=== PATIENT | female | born 1950 | race Caucasian/White ===

== ENCOUNTER → 2022-12-19 | Outpatient (CLI) | payer MEDICARE ==
--- NOTE | 2022-12-19 09:59 | MM ---
Reason for Exam: Clinical finding. Baseline mammogram. Indicated Problems: Bloody discharge of the left side for 3 Year(s). Patient History: Menarche at age 15. First Full-Term at age 22. Left ovary removed at age 66. Right ovary removed at age 66. Hysterectomy at age 66. Postmenopausal. Niece had breast cancer under age 50. Risk Values: Sirena 5 year model risk: 1.4%. NCI Lifetime model risk: 4.0%. Prior Study Comparison: Patient's first Mammogram. Tissue Density: There are scattered fibroglandular densities. Findings: Analyzed By CAD. No distortion or suspicious group of microcalcifications in either breast. Overall Assessment: Negative, BI-RAD 1 Management: Screening Mammogram of both breasts in 1 year. Advise surgical consultation due to left nipple discharge. Results were given to the patient verbally at the time of exam. Patient should continue monthly self-breast exams. A clinical breast exam by your physician is recommended on an annual basis. This exam should not preclude additional follow-up of suspicious palpable abnormalities. Note on Sirena scores and lifetime risk: 1. A Sirena score greater than 3% is considered moderate risk. If this is the case, consider specialist referral to assess eligibility for a risk reducing agent. 2. If overall lifetime risk for the development of breast cancer is 20% or higher, the patient may qualify for future screening with alternating mammogram and breast MRI. Electronically signed and approved by: Micha Robison M.D.
== END | disposition home or self-care (01) ==
LOC: RADMAMWWP 08:56
PROVIDERS: ATTEND Internal Medicine
DX: R92.8 Other abnormal and inconclusive findings on diagnostic imaging of breast (principal); N64.52 Nipple discharge; Z78.0 Asymptomatic menopausal state
CPT/HCPCS: 77066; G0279; 77062

== ENCOUNTER → 2022-12-31 | Outpatient (CLI) | payer MEDICARE ==
[2022-12-31 10:21] VITALS: BP 155/89; PULSE 76; RESP 18; TEMP 97.6
--- NOTE | 2022-12-31 10:55 | P.GSHP ---
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 Brandt regarding a biopsy-proven left breast punch biopsy of the nipple areolar region positive for invasive ductal carcinoma. The patient underwent a bilateral mammogram and 10012 this was benign BIRADS 1. The patient states she had had some protrusion at the left nipple for approximately 3 years, she herself. This area off and it did not heal well. The patient has not noted any other lumps masses or nodules of concern in either breast. She has no lesions of concern on her right nipple. She does not complain of any nipple discharge. She's not had any recent trauma or infection in her breast. She's never had any surgery of her breasts. Patient had uterine cancer 6 years ago treated with a hysterectomy and radiation. She did not have any chemotherapy or hormone therapy. Caffeine: 1 cup/day nicotine: none chocolate: occasional BCP: 6 months in the remote past Family History: Patient: Uterine cancer sister: uterine cancer Niece: Breast cancer Hormonal history: Menarche: 15 , breast fed: no age at first : 22 menopause: not sure when stopped, she started having dysfunctional uterine bleeding shortly after she stopped her periods and didn't realize that it was most likely a uterine malignancy hormones: none Surgical history: 2 C-sections Total abdominal hysterectomy Stomach surgery question what was done Medical history: HTN GERD Social History: Nicotine: Negative Alcohol: Negative Drugs: Negative - Constitutional Constitutional: Denies chills, Denies fever - EENT Eyes: denies blurred vision, denies pain Ears: deny: decreased hearing, tinnitus Ears, nose, mouth and throat: Denies headache, Denies sore throat - Breasts Breasts: bilateral: as per HPI - Cardiovascular Cardiovascular: Denies chest pain, Denies shortness of breath - Respiratory Respiratory: Denies cough, Denies 7 - Gastrointestinal Gastrointestinal: Reports as per HPI - Genitourinary (Female) Genitourinary: Denies dysuria, Denies hematuria - Menstruation Menstruation: Reports as per HPI - Musculoskeletal Musculoskeletal: Reports myalgias - Integumentary Integumentary: Denies pruritus, Denies rash - Neurological Neurological: Denies numbness, Denies weakness - Psychiatric Psychiatric: Denies anxiety, Denies depression - Endocrine Endocrine: Denies fatigue, Denies weight change - Hematologic/Lymphatic Comment: none - Allergic/Immunologic Allergic/Immunologic: Reports seasonal allergies Past Medical History History of Any Multi-Drug Resistant Organisms: None Reported Smoking Status: Never smoker Medications and Allergies Home Medications Medication Instructions Recorded Confirmed Type Metoprolol Tartrate [Lopressor] 50 mg PO DAILY 12/31/22 12/31/22 History Allergies Allergy/AdvReac Type Severity Reaction Status Date / Time No Known Allergies Allergy Unverified 12/31/22 10:16 Surgical - Exam Vital Signs Temp Pulse Resp BP Pulse Ox 97.6 F 76 18 155/89 100 12/31/22 10:17 12/31/22 10:17 12/31/22 10:17 12/31/22 10:17 12/31/22 10:17 - General no distress - Eyes normal ocular movement - ENT no hearing loss - Neck trachea midline - Respiratory normal respiratory effort, clear to auscultation - Cardiovascular Rhythm: regular Heart Sounds: normal: S1, S2 - Abdomen Abdomen: soft, non tender, no guarding, no rigid, no rebound - Integumentary normal turgor - Neurologic no disoriented, no combative - Musculoskeletal normal gait - Psychiatric oriented to time, oriented to person, oriented to place, speech is normal, memory intact Breast Exam: BRA; large sports bra inspection: Bilateral grade 3 ptosis, the left nipple is firm and erythematous enlarged and this is the area of the biopsy site Palpation: Right breast: Positional exam fibrocystic changes no dominant masses or nodules of concern Right axilla: No adenopathy of concern Left breast: Multi-positional exam fibrocystic changes no discrete dominant masses or nodules within the breast, the nipple itself is firm and erythematous and appears to have tumor extruding from the nipple itself Left axilla: No adenopathy of concern Results Mammogram reviewed this was a BIRADS 1 Pathology reviewed invasive ductal carcinoma estrogen receptor positive progesterone receptor positive and HER-2 +1 Grade 2 Assessment and Plan Assessment: Impression: Invasive ductal carcinoma left nipple complex Plan: Presentation of case at tumor board Probable central lumpectomy with sentinel node biopsy Consider neoadjuvant chemotherapy Appointment with medical oncology A primary with radiation oncology CC: Dr. Brandt
== END ==
LOC: WWCWWP 09:59
PROVIDERS: ATTEND Surgery
DX: C50.912 Malignant neoplasm of unspecified site of left female breast (principal); Z85.3 Personal history of malignant neoplasm of breast; I10 Essential (primary) hypertension; K21.9 Gastro-esophageal reflux disease without esophagitis; Z79.899 Other long term (current) drug therapy

== ENCOUNTER → 2023-01-24 | Outpatient (CLI) | payer MEDICARE ==
--- NOTE | 2023-01-26 12:49 | BMR ---
EXAMINATION TYPE: MR breast BILAT wo/w con DATE OF EXAM: 01/24/2023 COMPARISON: Bilateral 3-D diagnostic mammogram December 19, 2022 BI-RADS 1. HISTORY: History of benign biopsy of left breast. Left-sided nipple bloody discharge for 3 years. Inv asive mammary carcinoma left nipple on punch biopsy TECHNIQUE: A series of fat and water weighted images in the long and short axis views of both breasts are obtained in conjunction with dynamic contrast MRI with subtraction technique. The patient was i njected with 11.5 mL intravenous Gadavist gadolinium contrast. Three-dimensional and additional pos tprocessing imaging is created on independent workstation and reviewed during official interpretation of this study. FINDINGS: Scattered fibroglandular tissue bilaterally is redemonstrated. There are benign-appearing b ilateral axillary lymph nodes noted. No significant cystic change or focal fluid collections are iden tified bilaterally. Dynamic postcontrast imaging shows minimal background enhancement bilaterally. With regards to the right breast. There is no abnormal skin thickening seen. No pathologic enhancemen t or enhancing masses are identified. The chest wall appears intact. Right nipple pointing inferiorly on sagittal image 34. With regards to the left breast. There is no abnormal skin thickening seen. Left nipple pointing infe riorly on sagittal image 43. There is some heterogeneous enhancement with areas of uptake and washout . No additional areas of pathologic enhancement throughout the entire left breast are identified. The chest wall appears intact. IMPRESSION: Some heterogeneous enhancement with washout through the left nipple consistent with recen t biopsy-proven carcinoma. No multicentric involvement in the left breast. No MRI evidence for invasi ve malignancy in the right breast. No suspicious adenopathy BI-RADS 6 biopsy-proven cancer left breast BI-RADS 2 benign findings right breast Recommendation: Appropriate surgical and oncologic management for newly diagnosed left breast tom larsen
== END | disposition home or self-care (01) ==
LOC: RADMRIMAIN 13:03
PROVIDERS: ATTEND Internal Medicine
DX: C50.012 Malignant neoplasm of nipple and areola, left female breast (principal)
CPT/HCPCS: C8908; A9585; 77049

== ENCOUNTER → 2023-02-20 | Outpatient (CLI) | payer MEDICARE ==
[2023-02-20 12:59] VITALS: BP 153/80; PULSE 89; RESP 17; TEMP 98.3
--- NOTE | 2023-02-20 13:31 | P.PN ---
Subjective Progress Note Date: 02/20/23 Principal diagnosis: left nipple cancer History of Present Illness H&P Date: 02-20-23 Chief Complaint: left breast invasive ductal carcinoma on punch biopsy Danitza is a 72-year-old white female seen in consultation for Dr. Brandt regarding a biopsy-proven left breast punch biopsy of the nipple areolar region positive for invasive ductal carcinoma. The [place] [address] this was benign BIRADS 1. The patient states she had had some protrusion at the left nipple for approximately 3 years, a sore occured which did not heal well. The patient has not noted any other lumps masses or nodules of concern in either breast. She has no lesions of concern on her right nipple. She does not complain of any nipple discharge. She's not had any recent trauma or infection in her breast. She's never had any surgery of her breasts. Patient had uterine cancer 6 years ago treated with a hysterectomy and radiation. She did not have any chemotherapy or hormone therapy. MRI: 01-23-23 no pathologic enhancement of the tissue in either breast [facility] oncology note reviewed: 01-28-23 radiation oncology note reviewed 02-12-23 oncotype: 13 < 1% benefit patient decided to defer genetic testing Caffeine: 1 cup/day nicotine: none chocolate: occasional BCP: 6 months in the remote past Family History: Patient: Uterine cancer sister: uterine cancer Niece: Breast cancer Hormonal history: Menarche: 15 , breast fed: no age at first : 22 menopause: not sure when stopped, she started having dysfunctional uterine bleeding shortly after she stopped her periods and didn't realize that it was most likely a uterine malignancy hormones: none Surgical history: 2 C-sections Total abdominal hysterectomy Stomach surgery question what was done Medical history: HTN GERD Social History: Nicotine: Negative Alcohol: Negative Drugs: Negative - Constitutional Constitutional: Denies chills, Denies fever - EENT Eyes: denies blurred vision, denies pain Ears: deny: decreased hearing, tinnitus Ears, nose, mouth and throat: Denies headache, Denies sore throat - Breasts Breasts: bilateral: as per HPI - Cardiovascular Cardiovascular: Denies chest pain, Denies shortness of breath - Respiratory Respiratory: Denies cough - Gastrointestinal Gastrointestinal: Reports as per HPI - Genitourinary (Female) Genitourinary: Denies dysuria, Denies hematuria - Menstruation Menstruation: Reports as per HPI - Musculoskeletal Musculoskeletal: Reports myalgias - Integumentary Integumentary: Denies pruritus, Denies rash - Neurological Neurological: Denies numbness, Denies weakness - Psychiatric Psychiatric: Denies anxiety, Denies depression - Endocrine Endocrine: Denies fatigue, Denies weight change - Hematologic/Lymphatic Comment: none - Allergic/Immunologic Allergic/Immunologic: Reports seasonal allergies Past Medical History History of Any Multi-Drug Resistant Organisms: None Reported Smoking Status: Never smoker Medications and Allergies Home Medications Medication Instructions Recorded Confirmed Type Metoprolol Tartrate [Lopressor] 50 mg PO DAILY 12/31/22 12/31/22 History Allergies Allergy/AdvReac Type Severity Reaction Status Date / Time No Known Allergies Allergy Unverified 12/31/22 10:16 Objective - Vital Signs Vital signs: Vital Signs Temp 98.3 F 02/20/23 12:55 Pulse 89 02/20/23 12:55 Resp 17 02/20/23 12:55 BP 153/80 02/20/23 12:55 Pulse Ox 97 02/20/23 12:55 FiO2 Intake & Output 02/19/23 02/20/23 02/20/23 18:59 06:59 18:59 Weight 109.316 kg - Constitutional General appearance: Present: cooperative - EENT Eyes: Present: EOMI ENT: Present: hearing grossly normal - Neck Neck: Present: normal ROM - Respiratory Respiratory: bilateral: CTA - Cardiovascular Heart sounds: normal: S1, S2 - Gastrointestinal General gastrointestinal: Present: soft - Integumentary Integumentary: Present: normal turgor - Musculoskeletal Musculoskeletal: Present: gait normal - Psychiatric Psychiatric: Present: A&O x's 3, appropriate affect, intact judgment & insight - Additional findings Additional findings: Breast Exam: BRA; large sports bra inspection: Bilateral grade 3 ptosis, the left nipple is firm and erythematous enlarged and this is the area of the biopsy site Palpation: Right breast: Positional exam fibrocystic changes no dominant masses or nodules of concern Right axilla: No adenopathy of concern Left breast: Multi-positional exam fibrocystic changes no discrete dominant masses or nodules within the breast, the nipple itself is firm and erythematous and appears to have tumor extruding from the nipple itself Left axilla: No adenopathy of concern Assessment and Plan Assessment: Impression: Invasive ductal carcinoma left nipple complex Plan: Presentation of case at tumor board: 01-13-23 Probable central lumpectomy left breast with left sentinel node injection and left sentinel node biopsy possible onco-plastic tissue transfer and possible left axillary node dissection Consider neoadjuvant chemotherapy Appointment with medical oncology A primary with radiation oncology We have discussed treatment options. Surgical: We have talked about lumpectomy versus mastectomy. We have talked about sentinel node biopsy and axillary node dissection. At this point the patient would for prefer to have a lumpectomy. We have discussed the tissues seemed Wisely guidelines and the patient would prefer to have a sentinel node biopsy. Radiation oncology: We have talked about the need for radiation oncology if the patient has a lumpectomy Medical oncology: We have talked about chemotherapy, hormone therapy, and immunotherapy. Of importance is the fact that the lesion appears to be extending out through the nipple complex. I'm uncertain as to whether this truly represents invasion of the skin or an extrusion through the ductal area of the nipple. CC: Dr. Brandt
== END ==
LOC: WWCWWP 11:54
PROVIDERS: ATTEND Surgery
DX: C50.912 Malignant neoplasm of unspecified site of left female breast (principal); I10 Essential (primary) hypertension; K21.9 Gastro-esophageal reflux disease without esophagitis; Z90.710 Acquired absence of both cervix and uterus; Z79.899 Other long term (current) drug therapy

== ENCOUNTER 2023-03-05 07:40 | Day surgery (SDC) | payer MEDICARE ==
[2023-02-27 15:52] VITALS: BMI 42.7
[~2023-03-05 07:40] MED LIST: ALPRAZolam 0.25 MG TAB PO PRN; DEXAMETHASONE SOD PHOSPHATE 4 MG/ML 1 ML VIAL IV ONE; HEPARIN SODIUM,PORCINE/PF 5,000 UNIT/0.5 ML SYRINGE SQ PRN; LACTATED RINGERS 1,000 ML IV SCH; ONDANSETRON 4 MG/2 ML VIAL IVP ONE; Pre Op ABX Message 1 EACH MISC MISCELLANE ONE; fentaNYL (PF) 50 MCG/ML 2 ML AMP IV PRN
[2023-03-05 08:34] VITALS: TEMP 96.8
--- NOTE | 2023-03-05 09:37 | NM ---
EXAMINATION TYPE: NM sentinel node injection DATE OF EXAM: 03/05/2023 COMPARISON: 12/19/2022 CLINICAL INDICATION: Female, 73 years old with history of C50.012 MALIGNANT NEOPLASM OF NIPPLE AND AR EOLA, LEFT BREAST; TECHNIQUE AND FINDINGS: The procedure of sentinel lymph node injection was explained to the patient. The benefits, alternatives, and risks were discussed. An informed consent was then obtained. Overlying skin is cleaned with sterile alcohol. Following this, 496 uCi Tc99m Tilmanocept was inject ed in the upper outer aspect of the left nipple intradermally. The patient tolerated the procedure well without any immediate complication. The patient was kept in the radiology department for short stay after the procedure and then taken to surgery for surgical p rocedure what is presumed intraoperative gamma probe will be used for sentinel lymph node detection. IMPRESSION: Left breast radiotracer injection for sentinel node localization as above.
--- NOTE | 2023-03-05 10:05 | P.NAPBC ---
NAPBC Queries - NAPBC Queries Was patient's case review presented at [facility] tumor board? If no, comment.: Yes Was patient's pathology reviewed at [facility]? If no, comment.: Yes Was breast conservation surgery offered? If no, comment.: Yes Was sentinel node biopsy offered? If no, comment.: Yes Was diagnosis confirmed by percutaneous core biopsy? If no, comment.: Yes Is patient mastectomy patient?: No Was a preop referral to reconstructive surgeon offered?: No Clinical Stage: stage I invasive ductal cancer
[2023-03-05] MEDS ORDERED: MIDAZOLAM 2 MG/2 ML VIAL ONE (10:48)
[2023-03-05] MEDS ORDERED: SUCCINYLCHOLINE CHLORIDE 200 MG/10 ML VIAL IV ONE (10:48)
[2023-03-05] MEDS ORDERED: ePHEDrine 50 MG/ML 1 ML VIAL ONE (10:48)
[2023-03-05] MEDS ORDERED: LIDOCAINE 4% LTA KIT (4 ML) TOPICAL ONE (10:48)
[2023-03-05] MEDS ORDERED: PROPOFOL 10 MG/ML 20 ML VIAL IV ONE (10:48)
[2023-03-05] MEDS ORDERED: fentaNYL (PF) 50 MCG/ML 2 ML AMP ONE (10:48)
[2023-03-05] MEDS ORDERED: LIDOCAINE 2% INJ 20 MG/ML (2 ML VIAL) ONE (10:48)
[2023-03-05] MEDS ORDERED: SODIUM CHLORIDE 0.9% 50 ML with ceFAZolin 2,000 MG IV ONE ×2 (11:00)
[2023-03-05] MEDS ORDERED: ceFAZolin 1,000 MG VIAL ONE (11:00)
[2023-03-05] MEDS ORDERED: SODIUM CHLORIDE 0.9% 100 ML BAG ONE (11:00)
--- NOTE | 2023-03-05 12:16 | P.OP ---
Date of Procedure: 03/05/23 Preoperative Diagnosis: Left breast invasive ductal carcinoma Postoperative Diagnosis: Same Procedure(s) Performed: Left breast central lumpectomy, sentinel node biopsy, onco-plastic tissue transfer 36 cm Anesthesia: CHARANJIT Surgeon: Mamta Martinez Estimated Blood Loss (ml): 10 IV fluids (ml): 400 Pathology: other (Left axilla, breast tissue) Condition: stable Disposition: same day Indications for Procedure: Left breast biopsy-proven invasive ductal carcinoma Operative Findings: Fibrofatty breast tissue Description of Procedure: The patient is a 73-year-old white female diagnosed with a left breast invasive ductal carcinoma at the nipple areolar complex. She was injected in the periareolar area with radioactive tracer in the preoperative area. The patient was then brought to the operative suite. In the operative suite and following induction of anesthesia. The neoprobe was used to establish that there was radioactivity in the axilla. Following this the left breast and axilla were prepped and draped in a sterile fashion. An incision was made in the axilla over the area of greatest radioactivity. Dissection was performed down to a radioactive lymph node. Using the Harmonic scalpel. The area of tissue was excised. The 10 second count on the node was 44,702. The 10 second background count was 18. After assured that hemostasis was attained the wound was well irrigated. The deep tissues were closed using 3-0 Vicryl suture. The skin was closed using 4-0 Monocryl. Following this the area of the breast was approached. The nipple areolar complex had been outlined in the preoperative area. Wide excision was performed around this in elliptical fashion. Anterior skin of the nipple areolar complex as well as the nipple and areolar were removed. Dissection was carried inferiorly to the pectoralis major muscle. The specimen was removed. Following this the wound was well irrigated. Superior pillar 5 x 2 cm for 10 cm2 was formed, and inferior pillar 7 x 2 cm for 14 cm2 was formed. The cavity itself was 6 x 2 cm for 12 cm2.. Tissue transfer was 36 cm. The deep tissues were irrigated. Titanium clips were placed. Surgicel in powder form was placed. The deep tissue Pillars were brought together using 3-0 Vicryl suture. This was followed by closure of the subcutaneous tissue with 3-0 Vicryl suture. The skin was closed using a 4-0 Monocryl. The patient tolerated the procedure in stable condition. The specimen was painted for orientation. Anterior black Posterior green Superior viloet Inferior:blue Medial: Yellow Lateral: orange. Additionally at the superior aspect on the anterior surface of the nipple areolar complex a nylon suture was placed. The skin of the nipple areolar lesion was excised. Inferior All instrument and sponge counts were correct at the end of the case.
--- NOTE | 2023-03-05 12:18 | P.DS ---
Providers Attending physician: Mamta Martinez Primary care physician: Les Brandt Plan - Discharge Summary Discharge Rx Participant: No New Discharge Prescriptions: No Action Metoprolol Tartrate [Lopressor] 50 mg PO DAILY Discharge Medication List Metoprolol Tartrate [Lopressor] 50 mg PO DAILY 12/31/22 [History] Follow up Appointment(s)/Referral(s): Mamta Martinez MD [STAFF PHYSICIAN] - 03/13/23 8:40 am Activity/Diet/Wound Care/Special Instructions: Do not drive for 24 hours from discharge, or if taking narcotic pain medicine Wear bra at all times May shower after 48 hours Discharge Disposition: HOME SELF-CARE
[2023-03-05 12:36] VITALS: RESP 16
[2023-03-05 13:12] VITALS: BP 120/75; PULSE 62
== END 2023-03-05 13:36 | disposition home or self-care (01) ==
LOC: OR 07:40
PROVIDERS: ATTEND Surgery
DX: C50.912 Malignant neoplasm of unspecified site of left female breast (principal); C77.3 Secondary and unspecified malignant neoplasm of axilla and upper limb lymph nodes; I10 Essential (primary) hypertension; Z85.42 Personal history of malignant neoplasm of other parts of uterus; Z79.899 Other long term (current) drug therapy
CPT/HCPCS: 19301; 38525; 14301; 93005; 88342; 88307; 88341; 38792; A9520; J2250; J0330; J1100; J2405; J0690; J3010; J2704; J1644; J2001

== ENCOUNTER → 2023-07-10 | Outpatient (CLI) | payer MEDICARE ==
--- NOTE | 2023-07-10 09:33 | P.PN ---
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 Brandt regarding a biopsy-proven left breast punch biopsy of the nipple areolar region positive for invasive ductal carcinoma. The [place] [id number] this was benign BIRADS 1. The patient states she had had some protrusion at the left nipple for approximately 3 years, a sore occured which did not heal well. The patient has not noted any other lumps masses or nodules of concern in either breast. She has no lesions of concern on her right nipple. She does not complain of any nipple discharge. She's not had any recent trauma or infection in her breast. She's never had any surgery of her breasts. Patient had uterine cancer 6 years ago treated with a hysterectomy and radiation. She did not have any chemotherapy or hormone therapy. The patient on 03-05-23 underwent a central lumpectomy and SNB. 1.5 Cm invasive cancer all margins (-). two nodes one with isolated tumor cells. oncotype 13 completed radiation therapy anastrazole recommended by medical oncology, however the patient has decided not to take this. She is not complaining of any new lumps masses or nodules of concern in either breast. MRI: 01-23-23 no pathologic enhancement of the tissue in either breast medical oncology note reviewed: 05-14-23 radiation oncology oncotype: 13 < 1% benefit patient decided to defer genetic testing Caffeine: 1 cup/day nicotine: none chocolate: occasional BCP: 6 months in the remote past Family History: Patient: Uterine cancer sister: uterine cancer Niece: Breast cancer Hormonal history: Menarche: 15 , breast fed: no age at first : 22 menopause: not sure when stopped, she started having dysfunctional uterine bleeding shortly after she stopped her periods and didn't realize that it was most likely a uterine malignancy hormones: none Surgical history: 2 C-sections Total abdominal hysterectomy Stomach surgery question what was done left breast central lumpectomy and SNB Medical history: HTN GERD Social History: Nicotine: Negative Alcohol: Negative Drugs: Negative - Constitutional Constitutional: Denies chills, Denies fever - EENT Eyes: denies blurred vision, denies pain Ears: deny: decreased hearing, tinnitus Ears, nose, mouth and throat: Denies headache, Denies sore throat - Breasts Breasts: bilateral: as per HPI - Cardiovascular Cardiovascular: Denies chest pain, Denies shortness of breath - Respiratory Respiratory: Denies cough - Gastrointestinal Gastrointestinal: Reports as per HPI - Genitourinary (Female) Genitourinary: Denies dysuria, Denies hematuria - Menstruation Menstruation: Reports as per HPI - Musculoskeletal Musculoskeletal: Reports myalgias - Integumentary Integumentary: Denies pruritus, Denies rash - Neurological Neurological: Denies numbness, Denies weakness - Psychiatric Psychiatric: Denies anxiety, Denies depression - Endocrine Endocrine: Denies fatigue, Denies weight change - Hematologic/Lymphatic Comment: none - Allergic/Immunologic Allergic/Immunologic: Reports seasonal allergies Past Medical History History of Any Multi-Drug Resistant Organisms: None Reported Smoking Status: Never smoker Medications and Allergies Home Medications Medication Instructions Recorded Confirmed Type Metoprolol Tartrate [Lopressor] 50 mg PO DAILY 12/31/22 12/31/22 History Allergies Allergy/AdvReac Type Severity Reaction Status Date / Time No Known Allergies Allergy Unverified 12/31/22 10:16 Objective - Vital Signs Vital signs: Intake & Output 07/09/23 07/10/23 07/10/23 18:59 06:59 18:59 Weight 110.223 kg - Constitutional General appearance: Present: cooperative - EENT Eyes: Present: EOMI ENT: Present: hearing grossly normal - Neck Neck: Present: normal ROM - Respiratory Respiratory: bilateral: CTA - Cardiovascular Rhythm: regular Heart sounds: normal: S1, S2 - Gastrointestinal General gastrointestinal: Present: soft - Integumentary Integumentary: Present: normal turgor - Musculoskeletal Musculoskeletal: Present: gait normal - Psychiatric Psychiatric: Present: A&O x's 3, appropriate affect, intact judgment & insight - Additional findings Additional findings: Breast Exam: BRA; large sports bra inspection: Bilateral grade 3 ptosis, the left nipple is firm and erythematous enlarged and this is the area of the biopsy site Palpation: Right breast: Positional exam fibrocystic changes no dominant masses or nodules of concern Right axilla: No adenopathy of concern Left breast: Multi-positional exam fibrocystic changes no discrete dominant masses or nodules within the breast, status post central lumpectomy and radiation therapy Left axilla: No adenopathy of concern Assessment and Plan Assessment: Impression: Invasive ductal carcinoma left nipple complex/ status post treatment patient has decided against hormones therapy Plan: bilateral mammogram November 2023 with appointment at that time follow with radiation oncology follow with medial oncology CC: Dr. Brandt
[2023-07-10 09:35] VITALS: BP 153/80; PULSE 65; RESP 17; TEMP 97.8
== END ==
LOC: WWCWWP 08:44
PROVIDERS: ATTEND Surgery
DX: D05.12 Intraductal carcinoma in situ of left breast (principal); I10 Essential (primary) hypertension; K21.9 Gastro-esophageal reflux disease without esophagitis; Z79.899 Other long term (current) drug therapy

== ENCOUNTER 2024-02-17 07:39 | Day surgery (SDC) | payer MEDICARE ==
[2024-02-17 08:44] VITALS: TEMP 98.1
[2024-02-17 09:37] VITALS: RESP 16
[2024-02-17 10:13] VITALS: BP 136/84; PULSE 61
--- NOTE | 2024-02-17 11:57 | US ---
EXAMINATION TYPE: US FNA thyroid first lesion DATE OF EXAM: 02/17/2024 9:59 AM CLINICAL INDICATION:Female, 74 years old with history of E04.1 SINGLE THYROID NODULE; , thyroid nodul e. COMPARISON: None ATTENDING: Dr. Les Orlando PROCEDURE: Informed consent was obtained. The risks and benefits of the procedure were discussed with the patien t. The site was marked. Timeout procedure was performed Ultrasound imaging of the thyroid demonstrates right thyroid nodule The patient was prepped, draped in the usual sterile fashion, and locally anesthetized with 1% lidoca ine. Five fine needle aspiration were then performed with a 25 gauge needle. Samples were sent to [facility] pathology department for further analysis. Patient tolerated the procedure without incident and wa s sent home in stable condition. IMPRESSION: Successful ultrasound guided fine needle aspiration.
== END 2024-02-17 10:10 | disposition home or self-care (01) ==
LOC: RADPROMAIN 07:39
PROVIDERS: ATTEND Family Medicine
DX: E04.1 Nontoxic single thyroid nodule (principal)
CPT/HCPCS: 10005; 88173; 88305